=== PATIENT | female | born 1960 | race Caucasian/White ===

== ENCOUNTER 2020-09-25 09:12 | Emergency (ER) | payer MEDICAID, SELFPAY ==
[2020-09-25 11:25] VITALS: BP 130/52; PULSE 75; RESP 17; TEMP 36.6; O2SAT 96; BMI 41.9
--- NOTE | 2020-09-25 11:56 | ED.EXTPRO ---
HPI - Extremity Problem General Chief complaint: Extremity Injury, Upper Stated complaint: RT SHOULDER AND NECK INJ FELL Time Seen by Provider: 09/25/20 11:44 Source: patient and RN notes reviewed History of Present Illness HPI Narrative: 60-year-old female here today for complaints of right shoulder and right side of neck pain. Patient reports that she fell couple weeks ago while on vacation. She hit her right shoulder and right arm. Was seen in the ER after the incident and was given muscle relaxants IM and was sent home. She reports she was doing well until last night. Pain increased last night while sleeping. Has not been taking any medications for it except for Tylenol. Denies any pain or tenderness to her spine. Related Data Previous Rx's Medication Instructions Recorded cyclobenzaprine 5 mg PO TID PRN #14 tab 09/25/20 Allergies Allergy/AdvReac Type Severity Reaction Status Date / Time No Known Allergies Allergy Verified 09/25/20 12:24 [No Known Allergies*] Review of Systems Review of Systems: Yes all other systems are reviewed and are negative [facility] Social History Social History Advance Directives: No Advance Directives Information Provided: No Physical Exam Vital Signs: Vital Signs: Last Vital Signs Temp 97.8 F 09/25/20 11:25 Pulse 75 09/25/20 11:25 Resp 17 09/25/20 11:25 BP 130/52 L 09/25/20 11:25 Pulse Ox 96 09/25/20 11:25 Body Mass Index 41.9 Const: General: cooperative, healthy appearing and comfortable Nutritional Appearance: average body habitus Orientation/consciousness: patient oriented x3 Limitations: no limitations HENMT: Head: Yes normal to inspection Ears: hearing grossly normal bilaterally General nose exam: Normal external nose present Face and sinus: Yes normal facial exam Mouth: Normal oral and palatal mucosa present Throat: Yes posterior oropharynx normal Eyes: General: appearance normal, both eyes and all related structures Eyelids: Yes eyelids normal Conjunctivae: conjunctivae normal Sclerae: sclerae normal Pupils: Equal, round and reactive pupils present Neck: Neck: Yes normal visual inspection, Yes full ROM, Yes no lymphadenopathy, Yes trachea midline, Yes supple and Yes other (Right sided neck tenderness) Thyroid: Thyroid normal Lymphatic: no lymphadenopathy noted Chest: Chest palpation & inspection: normal inspection of the chest Resp: Effort & Inspection: normal respiratory effort and able to speak in complete sentences Auscultation: clear to auscultation bilaterally Cardio: Jugular venous distension: no JVD Rate: regular rate Rhythm: regular rhythm Heart sounds: S1 normal heart sound present, S2 normal heart sound present, no gallops, no murmurs and no rubs Peripheral pulses: Peripheral pulses 2+ throughout GI: Inspection: Yes normal to inspection and No distended Palpation (GI): No hepatosplenomegaly present and No Rebound tenderness present Percussion: Yes normal to percussion Auscultation: normal bowel sounds Back/Spine/Pelvis: Back: No back tenderness Cervical Spine: cervical muscular tenderness (Right-sided), pain with cervical ROM (To the left) and No Cervical spine tenderness Thoracic/Lumbar Spine: thoracic and lumbar spine normal to inspection Skin: General skin exam: no rashes or lesions noted, elasticity normal and turgor normal Neuro: General: patient oriented x3 Cranial nerves: Yes Equal, round and reactive pupils present Extrem: General: Yes normal to inspection, Yes full ROM and Yes capillary refill normal Psych: Appearance: grossly normal Mental Status: mental status grossly normal Speech and movement: Normal speech and movement present Affect: normal affect Attitude: cooperative Thought process: Normal thought process present Insight: Good insight present (Psych) Course Course Course Narrative: 60 years old female here today for right shoulder and neck pain. Patient injured herself few weeks ago while on vacation. She fell to the right side hitting her arm. Was given muscle spasm in the ER, however she has not received anything else for pain. Last night her right side of the neck very painful and right arm. Exam negative for any point tenderness over her shoulder, collarbone or cervical spine. Patient has tenderness of her deltoid muscle and the right sternocleidomastoid muscle. I will order her Toradol IM see if the pain will improve. Patient has a good ROM of her shoulder and her neck. Mild pain and tension of the sternocleidomastoid muscle when moving her neck to the left. Reevaluation(s) Reevaluation #1: Patient states that he she is feeling better after medicated with Toradol. I will send her home with Flexeril. Patient was instructed not to take it if she is driving. Discharge Plan Discharge Clinical Impression: Cervical muscle pain Neck strain Qualifiers: Encounter type: initial encounter Qualified Code(s): S16.1XXA - Strain of muscle, fascia and tendon at neck level, initial encounter Patient Disposition: Home, Self-Care Instructions: Cervical Strain (ED), Muscle Strain (ED) Additional Instructions: You were seen here for muscle and neck pain. You were given an anti-inflammatory medication while in the ED. You are given a script muscle relaxant. Make sure that you do not drive when you take this medication. He is return to emergency if your symptoms return or any other new concerning symptoms. Prescriptions: New cyclobenzaprine 5 mg tablet 5 mg PO TID PRN (Reason: muscle spasm) Qty: 14 RF: 0 Interventions: ED Discharge Assessment Last Done: 09/25/20 13:16 Discharge Date/Time: 09/25/20 13:17
[2020-09-25] MEDS: Ketorolac Tromethamine 60 MG/2 ML VIAL IM (12:34)
== END 2020-09-25 13:17 | disposition home or self-care (01) ==
PROVIDERS: Emergency Provider Emergency Medicine Emergency Medical Services
DX: S16.1XXA Strain of muscle, fascia and tendon at neck level, initial encounter (principal); W01.0XXA Fall on same level from slipping, tripping and stumbling without subsequent striking against object, initial encounter; Y93.89 Activity, other specified; Y92.89 Other specified places as the place of occurrence of the external cause; Y99.8 Other external cause status
CPT/HCPCS: 96374; 99283; 99284; J1885